=== PATIENT | female | born 2000 ===

== ENCOUNTER 2020-08-05 21:12 | Emergency (ER) | payer SELFPAY ==
[~2020-08-05] VITALS: Ht 157.5 cm; Wt 57.8 kg
[2020-08-05 21:13] VITALS: BP 115/66
[2020-08-05] MEDS ORDERED: xyzal (21:38)
[2020-08-05] MEDS ORDERED: ALLE24TA7 PO (21:38)
== END 2020-08-05 22:48 | disposition left against medical advice (07) ==
LOC: M ED 21:12
DX: Z53.21 Procedure and treatment not carried out due to patient leaving prior to being seen by health care provider (principal)